=== PATIENT | male | born 1965 | race Caucasian/White ===

== ENCOUNTER 2017-04-30 08:53 | Outpatient (CLI) | payer BC ==
--- NOTE | 2017-05-01 10:28 | Nuclear Medicine Report ---
EXAM: THYROID UPTAKE AND SCAN EXAM DATE: 04/30/2017 09:13 AM. CLINICAL HISTORY: ABNORMAL THYROID FUNCTION. COMPARISON: None. TECHNIQUE: Patient was administered standard dose of I-123 orally and returned at 4 and 24 hours for thyroid uptake measurement. At 4 hours after radioiodine ingestion, anterior gamma camera images of t he patient's neck were obtained from 3 standard angles. FINDINGS: Uptake: 4 Hour: 7.1% (Normal 4-18%). 24 Hour: 24.1% (Normal 8-32%). Thyroid Scan: The right thyroid lobe is larger than the left. No discrete hot or cold nodules. IMPRESSION: 1. Normal 4 and 24-hour uptake. 2. The right thyroid lobe appears larger than the left without discrete hot or cold nodules. [facility] Referring Provider Line: [phone] SITE ID: [id number]
== END 2017-04-30 08:54 | disposition home or self-care (01) ==
LOC: DI 08:53
PROVIDERS: ATTEND Nurse Practitioner Family
DX: R94.6 Abnormal results of thyroid function studies (principal)
CPT/HCPCS: 78014; A9509

== ENCOUNTER 2020-04-01 09:32 | Outpatient (CLI) | payer BC ==
--- NOTE | 2020-04-01 11:09 | XRAY Report ---
PROCEDURE: Shoulder 3 View RT INDICATIONS: PAIN IN RT SHOULDER TECHNIQUE: 3 views of the shoulder were acquired. COMPARISON: None. FINDINGS: Bones: Joint space is maintained. No significant degenerative changes. No fractures or dislocation. No suspicious bony lesions. Visualized ribs appear intact. Soft tissues: No suspicious soft tissue calcifications. IMPRESSION: No acute finding or significant degenerative changes. Reviewed by: Willian Greer MD on 04/01/2020 11:08 AM PDT Approved by: Willian Greer MD on 04/01/2020 11:08 AM PDT Station ID: [id number]
[2020-04-01 15:18] LABS: BILIRUBIN,URINE NEGATIVE (NEGATIVE); GLUCOSE, URINE (UA) NEGATIVE (NEGATIVE); KETONES,URINE (UA) NEGATIVE (NEGATIVE); LEUKOCYTE ESTERASE, URINE NEGATIVE (NEGATIVE); NITRITE,URINE NEGATIVE (NEGATIVE); OCCULT BLOOD,URINE NEGATIVE (NEGATIVE); PH,URINE 7.5 PH (5.0-7.5); PROTEIN,URINE NEGATIVE (NEGATIVE); UROBILINOGEN,URINE 0.2 (NORMAL) E.U./dL (NORMAL)
[2020-04-01 15:27] LABS: BASOPHILS % (AUTO) 1.1 %; EOSINOPHILS # (AUTO) 0.1 10^3/uL (0.0-0.7); EOSINOPHILS % (AUTO) 2.3 %; HGB - HEMOGLOBIN 13.8 g/dL (14.0-18.0); LYMPHOCYTES # (AUTO) 1.4 10^3/uL (1.5-3.5); LYMPHOCYTES % (AUTO) 38.9 %; MEAN CORPUSCULAR HEMOGLOBIN 30.7 pg (27.0-31.0); MEAN CORPUSCULAR HGB CONC 34.1 g/dL (32.0-36.0); MEAN CORPUSCULAR VOLUME 90.2 fL (80.0-94.0); MEAN PLATELET VOLUME 10.1 fL (7.4-11.4); MONOCYTES # (AUTO) 0.4 10^3/uL (0.0-1.0); MONOCYTES % (AUTO) 10.2 %; NEUTROPHILS # (AUTO) 1.7 10^3/uL (1.5-6.6); NEUTROPHILS % (AUTO) 47.2 %; PLT - PLATELET COUNT 185 10^3/uL (130-450); RED BLOOD COUNT 4.49 10^6/uL (4.70-6.10); RED CELL DISTRIBUTION WIDTH 12.6 % (12.0-15.0); WHITE BLOOD COUNT 3.5 x10^3/uL (4.8-10.8)
[2020-04-01 15:28] LABS: CLARITY,URINE CLEAR (CLEAR)
[2020-04-01 15:45] LABS: ALBUMIN 4.5 g/dL (3.2-5.5); ALBUMIN/GLOBULIN RATIO 1.9 (1.0-2.2); ALKALINE PHOSPHATASE 36 IU/L (42-121); ALT ALANINE AMINOTRANSFERASE 30 IU/L (10-60); AST ASPARTATE AMINOTRANSFERASE 21 IU/L (10-42); BILIRUBIN,TOTAL 0.7 mg/dL (0.2-1.0); BUN - BLOOD UREA NITROGEN 9 mg/dL (6-20); CARBON DIOXIDE - CO2 24 mmol/L (21-32); CHLORIDE 104 mmol/L (101-111); CHOL/HDL RATIO 3.5 (<5.0); CHOLESTEROL 165 mg/dL; CREATININE 0.8 mg/dL (0.6-1.2); GLUCOSE 112 mg/dL (70-100); HDL CHOLESTEROL 47 mg/dL; LDL CHOLESTEROL,CALCULATED 90 mg/dL; LDL/HDL RATIO 1.9 (<3.6); SODIUM 136 mmol/L (135-145); TOTAL PROTEIN 6.9 g/dL (6.7-8.2); VLDL CHOLESTEROL 28 mg/dL
== END 2020-04-01 09:33 | disposition home or self-care (01) ==
LOC: DI.S 09:32
PROVIDERS: ATTEND Nurse Practitioner Family
DX: M25.511 Pain in right shoulder (principal); Z13.220 Encounter for screening for lipoid disorders; R94.6 Abnormal results of thyroid function studies; R39.9 Unspecified symptoms and signs involving the genitourinary system
CPT/HCPCS: 36415; 80053; 80061; 81001; 81003; 83721; 84153; 84443; 85025; 87086